=== PATIENT | female | born 1995 | race American Indian/Alaskan Native ===

== ENCOUNTER 2021-01-28 11:25 | Emergency (ER) | payer MEDICARE ==
[2021-01-28 11:34] VITALS: BP 116/69
--- NOTE | 2021-01-28 13:10 | Emergency Department Report ---
Blank Doc - Documentation Documentation: Charge nurse Venita made aware that patient is needing a room for evaluation at 1310 Psych orders placed
== END 2021-01-28 11:53 | disposition left against medical advice (07) ==
LOC: ED 11:25
DX: F23 Brief psychotic disorder (principal); Z53.21 Procedure and treatment not carried out due to patient leaving prior to being seen by health care provider